=== PATIENT | female | born 1995 | race Hispanic/Latino ===

== ENCOUNTER → 2018-08-16 | Outpatient (CLI) | payer OTHER ==
[2018-08-16 14:36] LABS: BASO % 0.6 % (0.0-1.0); EOS # 0.2 10^3/uL (0.0-0.50); EOS % 3.3 % (0.0-3.0); HEMATOCRIT 42.1 % (36.0-47.0); HEMOGLOBIN 13.8 g/dl (12.0-15.5); LYMPH # 1.5 10^3/uL (1.5-6.5); LYMPH % 28.7 % (24.0-44.0); MEAN CORPUSCULAR HEMOGLOBIN 30.9 pg (27.0-33.0); MEAN CORPUSCULAR HGB CONC 32.8 g/dl (32.0-36.5); MEAN CORPUSCULAR VOLUME 94.2 fl (80.0-96.0); MONO # 0.4 10^3/uL (0.0-0.8); MONO % 8.6 % (0.0-5.0); NEUTROPHILS % 57.8 % (36.0-66.0); PLATELET COUNT, AUTOMATED 258 10^3/uL (150-450); RED BLOOD COUNT 4.47 10^6/uL (4.00-5.40); WHITE BLOOD COUNT 5.1 10^3/uL (4.0-10.0)
[2018-08-16 14:55] LABS: ALBUMIN 3.5 GM/DL (3.2-5.2); ALT/SGPT 15 U/L (12-78); BILIRUBIN,TOTAL 0.3 MG/DL (0.2-1.0); BLOOD UREA NITROGEN 11 MG/DL (7-18); CALCIUM LEVEL 9.2 MG/DL (8.5-10.1); CARBON DIOXIDE LEVEL 27 MEQ/L (21-32); CHLORIDE LEVEL 105 MEQ/L (98-107); CREATININE FOR GFR 0.62 MG/DL (0.55-1.30); FREE T4 0.95 NG/DL (0.76-1.46); GLOMERULAR FILTRATION RATE > 60.0 (>60); GLUCOSE, FASTING 77 MG/DL (70-100); POTASSIUM SERUM 4.4 MEQ/L (3.5-5.1); SODIUM LEVEL 139 MEQ/L (136-145); TOTAL PROTEIN 7.4 GM/DL (6.4-8.2)
[2018-08-20 00:08] LABS: EBV VIRAL CAPSID AG IgM <36.0 U/mL (0.0-35.9)
== END ==
LOC: M WUC 11:50
PROVIDERS: ATTEND Physician Assistant
DX: J02.9 Acute pharyngitis, unspecified (principal)

== ENCOUNTER → 2019-01-19 | Outpatient (CLI) | payer OTHER ==
--- NOTE | 2019-01-19 12:29 | REP ---
Maxillofacial CT study without contrast: History: Sinusitis. No comparison imaging. Acute recurrent maxillary sinusitis. Technique: Helical scanning is acquired. 3 mm axial images are reformatted. Coronal multiplanar re-formation images are generated. CT findings: There is mild mucosal thickening in the floor the right maxillary sinus. There is a mucous retention cyst in the floor the left maxillary sinus. This cyst measures 1.6 cm in greatest diameter. The maxillary sinuses are otherwise clear. No fluid is seen on either side. Mastoid, sphenoid, ethmoid, and frontal sinuses are clear. Bony nasal septum is in the midline. Ostiomeatal complexes appear patent. No nasal polyp is seen. Left nasal alar jewelry is noted. Impression: Mild bilateral mucosal changes in the maxillary sinuses. Otherwise negative. Electronically Signed by Clif Cr MD 01/19/2019 01:03 P
== END ==
LOC: M RAD 10:06
PROVIDERS: ATTEND Specialist
DX: J01.01 Acute recurrent maxillary sinusitis (principal)

== ENCOUNTER 2019-11-09 10:35 | Day surgery (SDC) | payer OTHER ==
[~2019-11-09] VITALS: Ht 152.4 cm; Wt 70.8 kg
[~2019-11-09 10:35] MED LIST: CEPH250REC PO; CYCL5TAB PO; DICY20TA11 PO; IBUP-1114 PO; IBUP1TAB7 PO; KETO10TAB PO; LR 1,000 ML IV ONE; MAGN400C2 PO
[2019-11-09] MEDS ORDERED: fentaNYL 100 MCG/2 ML INJECTION (J3010) As Ordered ONE (11:42)
[2019-11-09] MEDS ORDERED: MIDAZOLAM INJ 2MG/2ML VIAL (J2250 PER 1MG) As Ordered ONE (11:43)
[2019-11-09] MEDS ORDERED: propofoL 200 MG/20 ML VIAL As Ordered ONE (11:43)
[2019-11-09] MEDS ORDERED: LIDOCAINE 2% 100MG/5ML SDV (FOR ANES.) As Ordered ONE (11:43)
[2019-11-09] MEDS ORDERED: ROCURONIUM BROMIDE 50 MG/5 ML VIAL As Ordered ONE (11:45)
[2019-11-09] MEDS ORDERED: BUPIVACAINE HCL 0.5% 10ML VIAL As Ordered ONE (11:45)
[2019-11-09] MEDS ORDERED: ACETAMINOPHEN 1000MG 100ML IV BTL (OFIRMEV) (J0131 PER 10MG) As Ordered ONE (12:08)
[2019-11-09] MEDS ORDERED: SUGAMMADEX SODIUM 500 MG/5 ML VIAL (BRIDION) As Ordered ONE (12:09)
[2019-11-09] MEDS ORDERED: ONDANSETRON 4MG/2ML VIAL As Ordered ONE ×2 (12:09→13:14)
[2019-11-09] MEDS ORDERED: dexameTHASONE 4 MG/ML 1ML VIAL (J1100 PER 1MG) As Ordered ONE (12:09)
[2019-11-09] MEDS ORDERED: LR 1,000 ML IV SCH (13:30)
[2019-11-09] MEDS ORDERED: ONDANSETRON 4MG/2ML VIAL IV PRN (13:30)
[2019-11-09] MEDS ORDERED: fentaNYL 100 MCG/2 ML INJECTION (J3010) IV PRN (13:30)
[2019-11-09] MEDS ORDERED: IBUPROFEN 800 MG TAB PO PRN (13:30)
[2019-11-09] MEDS ORDERED: HYDROcodone/APAP LIQUID 7.5-325MG 15ML UDC (LORTAB ELIXIR) PO PRN (13:30)
[2019-11-09] MEDS ORDERED: oxyCODONE 5MG TAB PO PRN (13:30)
[2019-11-09 14:17] VITALS: BP 121/72
--- NOTE | 2019-11-30 07:07 | RO ---
DATE OF OPERATION: 11/09/2019 PREOPERATIVE DIAGNOSIS: Chronic tonsillitis. POSTOPERATIVE DIAGNOSIS: Chronic tonsillitis. PROCEDURE: Tonsillectomy. INDICATIONS: This is a 24-year-old with a long history of tonsillitis, pharyngitis, and recurrent Strep throat. PROCEDURE IN DETAIL: After satisfactory general endotracheal anesthesia was administered, the patient was placed in Trendelenburg position. Khang-Ed gag was inserted. TEMPLATE NEEDED FOR TONSILLECTOMY. At the completion of the surgery, 0.5% Marcaine was injected into the tonsil fossa. The gag was released and in three minutes, reinspection showed no active bleeding. The patient was then awakened, extubated, and sent to the recovery room in satisfactory condition. She will be discharged home on a combination of pain medicines to include Hycet elixir, Motrin, and Tylenol, as well as Keflex suspension 500 mg b.i.d. She will be seen in the office in one week. ASHLEY
--- NOTE | 2019-12-16 07:57 | RO ---
DATE OF OPERATION: 11/09/2019 PREOPERATIVE DIAGNOSIS: Chronic tonsillitis. POSTOPERATIVE DIAGNOSIS: Chronic tonsillitis. PROCEDURE: Tonsillectomy. SURGEON: Moose Darby MD EDUCATION SUPERVISOR: ANESTHESIA: General endotracheal. INDICATIONS: This is a 24-year-old with a long history of tonsillitis, pharyngitis, and recurrent Strep throat. PROCEDURE IN DETAIL: After satisfactory general endotracheal anesthesia was administered, the patient was placed in Trendelenburg position. Khang-Ed gag was inserted. First, the right tonsil was grasped with an Allis clamp and retracted out of its muscular fossa. Using a cutting cautery, incision was made on the anterior pillar 3 mm from its edge and the capsule of the tonsil was then identified. Using a combination of cautery and blunt dissection, the tonsil was dissected medially out of its muscular fossa working superiorly down into the space between the constrictor muscle and the tonsil capsule. The tonsil was rolled medially out of its fossa working inferiorly and preserving the posterior pillar in its entirety. Once the tonsil was suspended only at the inferior pole, coagulation current was used to amputate tissue. No significant bleeding was encountered in this dissection. The left tonsil was removed in a similar fashion. At the completion of the surgery, 0.5% Marcaine was injected into the tonsil fossa. The gag was released and in three minutes, reinspection showed no active bleeding. The patient was then awakened, extubated, and sent to the recovery room in satisfactory condition. She will be discharged home on a combination of pain medicines to include Hycet elixir, Motrin, and Tylenol, as well as Keflex suspension 500 mg b.i.d. She will be seen in the office in one week. ASHLEY
== END 2019-11-09 14:18 | disposition home or self-care (01) ==
LOC: M SDC 10:35
PROVIDERS: ATTEND Specialist
DX: J35.01 Chronic tonsillitis (principal); Z79.899 Other long term (current) drug therapy; Z91.030 Bee allergy status
CPT/HCPCS: 42826; 88302; J0131; J1100; J2250; J2405; J3010

== ENCOUNTER 2020-06-08 08:27 | Day surgery (SDC) | payer OTHER ==
[~2020-06-08] VITALS: Ht 152.4 cm; Wt 69.4 kg
[~2020-06-08 08:27] MED LIST changes: +EPIP0.3I2 IJ; -LR 1,000 ML IV ONE; +NS 1,000 ML IV ONE; +TIZA4CAP6 PO
[2020-06-08] MEDS ORDERED: LIDOCAINE 2% 100MG/5ML SDV (FOR ANES.) As Ordered ONE (09:02)
[2020-06-08] MEDS ORDERED: propofoL 200 MG/20 ML VIAL As Ordered ONE (09:02)
--- NOTE | 2020-06-08 10:32 | ROOR ---
Patient Name: Rubina Arias Procedure Date: 06/08/2020 9:15 AM Date of : 1995 Age: 25 Room: [facility] Gender: Female Note Status: Finalized Procedure: Total Colonoscopy to Cecum + ileoscopy Indications: Change in bowel habits, Chronic idiopathic constipation Providers: Jakob Munguia MD Referring MD: GODWIN CONNELLY MD Requesting Provider: Medicines: Monitored Anesthesia Care Complications: No immediate complications. Procedure: Pre-Anesthesia Assessment: - The heart rate, respiratory rate, oxygen saturations, blood pressure, adequacy of pulmonary ventilation, and response to care were monitored throughout the procedure. The Colonoscope was introduced through the anus and advanced to the terminal ileum, with identification of the appendiceal orifice and IC valve. The colonoscopy was performed without difficulty. The patient tolerated the procedure well. The quality of the bowel preparation was excellent. Findings: The perianal and digital rectal examinations were normal. No other significant abnormalities were identified in a careful examination of the remainder of the colon. The terminal ileum appeared normal. The exam was otherwise without abnormality on direct and retroflexion views. Impression: - The examined portion of the ileum was normal. - The examination was otherwise normal on direct and retroflexion views. - No specimens collected. - The exam was otherwise normal to the cecum. Recommendation: - Patient has a contact number available for emergencies. The signs and symptoms of potential delayed complications were discussed with the patient. Return to normal activities tomorrow. Written discharge instructions were provided to the patient. - High fiber diet. - Discharge patient to home. - Continue present medications. - Repeat colonoscopy at age 48 for screening purposes. - Return to referring physician. - The findings and recommendations were discussed with the patient. Procedure Code(s): --- Professional --- 93223, Colonoscopy, flexible; diagnostic, including collection of specimen(s) by brushing or washing, when performed (separate procedure) Diagnosis Code(s): --- Professional --- R19.4, Change in bowel habit K59.04, Chronic idiopathic constipation CPT copyright 2019 [employer]. All rights reserved. The codes documented in this report are preliminary and upon talent management specialist review may be revised to meet current compliance requirements. Jakob Munguia MD Jakob Munguia MD 06/08/2020 10:31:48 AM Electronically signed by Jakob Munguia MD Number of Addenda: 0 Note Initiated On: 06/08/2020 9:15 AM Estimated Blood Loss: Estimated blood loss: none.
[2020-06-08 10:35] VITALS: BP 117/71
== END 2020-06-08 10:47 | disposition home or self-care (01) ==
LOC: M OPP 08:27
PROVIDERS: ATTEND Internal Medicine Gastroenterology
DX: K59.00 Constipation, unspecified (principal); R10.11 Right upper quadrant pain; R10.31 Right lower quadrant pain; Z79.899 Other long term (current) drug therapy; Z91.030 Bee allergy status

== ENCOUNTER → 2020-11-18 | Outpatient (CLI) | payer OTHER ==
[~2020-11-18] MED LIST changes: -NS 1,000 ML IV ONE
--- NOTE | 2020-11-18 08:21 | REP ---
INDICATION: RUQ PAIN, R/O GB DISEASE. COMPARISON: None TECHNIQUE: Real-time sonographic evaluation of the right upper quadrant with Doppler FINDINGS: Multiple ultrasonographic images of the liver show the hepatic parenchymal echo texture to appear unremarkable. There are no focal masses. There is no intrahepatic ductal dilatation. The common bile duct measures approximately 4 mm in its greatest transverse dimension. Multiple ultrasonographic images of the gallbladder show no focal or diffuse gallbladder wall thickening. There are no echogenic foci within the gallbladder lumen, which casts acoustic shadows. There is no pericholecystic edema. Images of the pancreatic region show no gross abnormality. The imaged portion of the right kidney is unremarkable. IMPRESSION: Unremarkable right upper quadrant ultrasound. Accredited by the [employer] in General Ultrasound. <Electronically signed by Isaiah Robles > 11/18/20 1931
== END ==
LOC: M RAD 07:25
PROVIDERS: ATTEND Family Medicine
DX: R10.11 Right upper quadrant pain (principal)